=== PATIENT | female | born 1970 | race Caucasian/White ===

== ENCOUNTER 2020-04-29 17:21 | Emergency (ER) | payer MEDICAID ==
[2020-04-29] MEDS ORDERED: ONDANSETRON HCL INJ/PF 4 MG/2 ML SDV IV ONE (18:45)
--- NOTE | 2020-04-29 18:45 | ER Document Report ---
ED Medical Screen (RME) - General Stated Complaint: CHEST PAIN, VOMITING Time Seen by Provider: 04/29/20 18:32 Notes: Patient is a 49-year-old female, from [facility] who presents the emergency department with a chief complaint of chest pain, nausea, and vomiting. Patient's chest pain started yesterday. She was given p.o. Zofran and Phenergan. States that she feels a little bit better, but states that she feels like she could vomit again. Patient states that "I feel that I have a virus." Patient also started vomiting today. Patient states that she was started on a new medication and has been vomiting since she took that medication. Exam: Emesis noted in emesis basin. I have greeted and performed a rapid initial assessment of this patient. A comprehensive ED assessment and evaluation of the patient, analysis of test results and completion of medical decision making process will be conducted by an additional ED providers. Physical Exam - Vital signs Vitals: Temp Pulse Resp BP Pulse Ox 98.5 F 74 16 142/70 H 100 04/29/20 17:41 04/29/20 17:41 04/29/20 17:41 04/29/20 17:41 04/29/20 17:41 Course - Vital Signs Vital signs: Temp Pulse Resp BP Pulse Ox 98.5 F 74 16 142/70 H 100 04/29/20 17:41 04/29/20 17:41 04/29/20 17:41 04/29/20 17:41 04/29/20 17:41
--- NOTE | 2020-04-29 20:52 | RADIOLOGY REPORT (SQ) ---
EXAM DESCRIPTION: [facility]: XR CHEST 1 VIEW CLINICAL HISTORY: 49 years Female; cough; COMPARISON: None. FINDINGS: Lungs: Lungs are clear, with no focal infiltrate, pneumothorax, or pleural effusion. Mediastinum: Mediastinum is within normal limits for this positioning. Bones: Bony structures are unremarkable. IMPRESSION: 1. No acute pulmonary findings.
--- NOTE | 2020-04-29 20:55 | RADIOLOGY REPORT (SQ) ---
EXAM DESCRIPTION: X-ray, two views of the right tibia and fibula CLINICAL HISTORY: 49 years Female, PAIN AND SWELLING COMPARISON: None. FINDINGS: Subacute fracture of the distal tibia and fibula diaphysis is identified. There is extensive associated callus formation. One half shaft's width displacement laterally of the tibia is seen. There is apex anterior angulation. Marked associated soft tissue swelling is noted. There is a healed fracture of the proximal fibula. Ankle mortise is intact. The knee appears normal. There is persistent visualization of the fracture line of the tibia and fibula suggesting nonunion. In addition the fragmentation, sclerosis and lucency raises the possibility of associated chronic infection. 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 Chronic osteomyelitis cannot be excluded. Marked soft tissue swelling.
[2020-04-29 21:42] LABS: A TYPE INFLUENZA AG POSITIVE (NEGATIVE); B INFLUENZA AG NEGATIVE (NEGATIVE)
--- NOTE | 2020-04-29 21:53 | EKG REPORT ---
SEVERITY:- NORMAL ECG - SINUS RHYTHM : Confirmed by: Aye Cortez 29-Apr-2020 21:52:19
--- NOTE | 2020-04-29 21:53 | EKG REPORT ---
SEVERITY:- ABNORMAL ECG - SINUS RHYTHM LEFT VENTRICULAR HYPERTROPHY BORDERLINE T ABNORMALITIES, INFERIOR LEADS : Confirmed by: Aye Cortez 29-Apr-2020 21:52:54
--- NOTE | 2020-04-29 21:53 | EKG REPORT ---
SEVERITY:- NORMAL ECG - SINUS RHYTHM : Confirmed by: Aye Cortez 29-Apr-2020 21:52:59
[2020-04-29 21:57] LABS: APPEARANCE,URINE SLIGHTLY-CLOUDY; BILIRUBIN,URINE NEGATIVE (NEGATIVE); COLOR,URINE YELLOW; GLUCOSE, URINE NEGATIVE (NEGATIVE); KETONES,URINE NEGATIVE (NEGATIVE); LEUKOCYTE ESTERASE,URINE SMALL (NEGATIVE); NITRITE,URINE NEGATIVE (NEGATIVE); PROTEIN,URINE 100 mg/dL (NEGATIVE); URINE SPECIFIC GRAVITY 1.012; UROBILINOGEN,URINE NEGATIVE mg/dL (<2.0)
[2020-04-29] MEDS ORDERED: ACETAMINOPHEN 325 MG TABLET PO ONE (22:57)
--- NOTE | 2020-04-29 23:44 | ER Document Report ---
ED General - General Chief Complaint: Nausea/Vomiting Stated Complaint: CHEST PAIN, VOMITING Time Seen by Provider: 04/29/20 18:32 Primary Care Provider: RYANNE WOOD [Primary Care Provider] - Follow up as needed JERRY HEALY MD [NO LOCAL MD] - Follow up in 3-5 days - [facility] Notes: Patient is a 49-year-old female who presents with multiple complaints. She is currently staying at [facility]. Patient has been there since Sunday. She states she has had 2 days of nausea and vomiting. She also has nonspecific abdominal discomfort. She states she has tightness in her chest. No constipation or diarrhea. No cough. No fevers. Denies sick contacts. She also mentions that about 2 years ago she broke her tib-fib. She had a hi placed at [facility]. The hi was removed because it got infected at [facility] in July of 2019. Patient was supposed to have an appointment with [facility] last sunday but missed it. She states that the area is painful but this has been chronic. No injuries. That she uses a wheelchair which is chronic since the injury. - Related Data Allergies/Adverse Reactions: erythromycin base [From Erythrocin] Allergy (Verified 04/29/20 21:53) vancomycin Allergy (Verified 04/29/20 21:53) Past Medical History - General Information source: Patient - Social History Smoking Status: Current Some Day Smoker Chew tobacco use (# tins/day): No Frequency of alcohol use: Rare Drug Abuse: None Family History: Reviewed & Not Pertinent Pulmonary Medical History: Reports: Hx Asthma Review of Systems - Review of Systems Notes: CONSTITUTIONAL: No fever, fatigue or weight loss. SKIN: No rash. HENT: No congestion, ear pain, or sore throat. EYES: No recent vision problems or eye pain. ENDOCRINE: No thyroid problems. No polyuria or polydipsia. CARDIOVASCULAR: No chest pain or edema. RESPIRATORY: No cough, shortness of breath, congestion, or wheezing. For chest tightness. GASTROINTESTINAL: Positive for abdominal cramping and vomiting. GENITOURINARY: No dysuria. MUSCULOSKELETAL: Positive for swelling and pain at the right ankle. LYMPHATIC: No swollen glands. NEUROLOGIC: No seizures. No headache, focal weakness or sensory changes. HEMATOLOGIC: No unusual bruising or bleeding. PSYCHIATRIC: No depression or anxiety. Physical Exam - Vital signs Vitals: Temp 98.5 F 04/29/20 17:21 - General General appearance: Appears well Notes: VITAL SIGNS: Within normal limits. GENERAL: No acute distress, non-toxic appearance. HEAD: Normal with no signs of head trauma. EYES: EOMI, conjunctiva normal, no discharge. EARS: Hearing grossly intact. NOSE: Normal. NECK: Normal range of motion, no tenderness, supple, no lymphadenopathy, No adenopathy, no JVD. CHEST: Clear breath sounds bilaterally. No wheezes, rales, or rhonchi. CARDIAC: Regular rate and rhythm. S1 and S2, without murmurs, gallops, or rubs. VASCULAR: No Edema. Peripheral pulses normal and equal in all extremities. ABDOMEN: Normal and soft with no tenderness. GASTROINTESTINAL: Bowel sounds normal GENITOURINARY: Normal, No tenderness LYMPATHTIC: No lymphadenopathy noted. MUSCULOSKELETAL: Chronic deformity to right lower tib-fib. Swelling present. Strong dorsalis pedis pulse. No erythema. NEUROLOGICAL: Alert and oriented x 3. No focal sensory or strength deficits. Speech normal. Follows commands appropriately. PSYCHIATRIC: Normal Affect, judgement and mood. SKIN: Normal appearance with no rashes or lesions. Course - Re-evaluation Re-evalutation: 04/30/20 01:54 Patient has influenza A which would explain her abdominal cramping and vomiting. States that symptoms started yesterday. She is in the Tamiflu window. Did discuss with orthopedics at [facility] who did her procedure earlier this year. It shows possible chronic osteomyelitis. Orthopedics stated that she needs to follow-up in the office for this within 1 or 2 weeks. He states that nothing urgent needs to be done for this and she does not need to be on antibiotics. I did relay this to the patient and the person with her from [facility]. Has a slightly low magnesium. This is likely from vomiting. We will replete. She will be discharged home with Tamiflu. Patient was tested for Covid. I did inform staff at [facility] about this. She will be isolated until she is called with a negative result. 05/01/20 02:19 - Vital Signs Vital signs: Temp Pulse Resp BP Pulse Ox 98.3 F 74 14 115/77 100 04/30/20 03:32 04/29/20 17:41 04/30/20 03:32 04/30/20 03:32 04/30/20 03:32 - Laboratory Result Diagrams: 04/30/20 00:52 04/30/20 00:52 Laboratory results interpreted by me: 04/29/20 04/30/20 21:15 00:52 Glucose 111 H Magnesium 1.4 L Urine Protein 100 H Ur Leukocyte Esterase SMALL H - Diagnostic Test Radiology reviewed: Image reviewed, Reports reviewed - EKG Interpretation by Me EKG shows normal: Sinus rhythm When compared to previous EKG there are: Previous EKG unavailable Additional EKG results interpreted by me: 04/29/20 23:58 Sinus rhythm at a rate of 69. QTc 429. No acute ST changes. No previous EKG available for comparison. Discharge - Discharge Clinical Impression: Influenza A, Pain of right lower leg, Hypomagnesemia Nausea & vomiting Qualifiers: Vomiting type: unspecified Vomiting Intractability: non-intractable Qualified Code(s): R11.2 - Nausea with vomiting, unspecified Abdominal pain Qualifiers: Abdominal location: generalized Qualified Code(s): R10.84 - Generalized abdominal pain Disposition: PSYCH HOSP/UNIT Instructions: COVID-19 Guidance for Persons Under Investigation, Influenza ([facility]) [id number] Additional Instructions: Make an appointment with your orthopedic doctor within 1 week. Isolate until you are called with a negative Covid result. Please return to the ER for any abdominal pain, fevers, vomiting, worsening symptoms. Prescriptions: Oseltamivir Phosphate [Tamiflu 75 mg Capsule] 75 mg PO BID 5 Days #10 capsule Referrals: [place],NO [Primary Care Provider] - Follow up as needed JERRY HEALY MD [NO LOCAL MD] - Follow up in 3-5 days
[2020-04-30 01:03] LABS: ABSOLUTE BASOPHILS # (AUTO) 0.1 10^3/uL (0.0-0.2); ABSOLUTE EOSINOPHILS # (AUTO) 0.1 10^3/uL (0.0-0.6); ABSOLUTE MONOCYTES (AUTO) 0.5 10^3/uL (0.1-1.4); ABSOLUTE NEUT (AUTO) 3.1 10^3/uL (1.7-8.2); BASOPHILS % (AUTO) 0.9 % (0-2); EOSINOPHILS % (AUTO) 0.8 % (0-6); HEMATOCRIT 36.6 % (36.0-47.0); HEMOGLOBIN 12.6 g/dL (12.0-15.5); MEAN CORPUSCULAR HEMOGLOBIN 28.5 pg (27.0-33.4); MEAN CORPUSCULAR HGB CONC 34.4 g/dL (32.0-36.0); MEAN CORPUSCULAR VOLUME 83 fl (80-97); MONOCYTES % (AUTO) 7.4 % (3-13); PLATELET COUNT 323 10^3/uL (150-450); RED BLOOD COUNT 4.41 10^6/uL (3.72-5.28); RED CELL DISTRIBUTION WIDTH 13.4 % (11.5-14.0); SEGMENTED NEUTROPHILS % (AUTO) 45.9 % (42-78); TOTAL CELLS COUNTED % (AUTO) 100 %; WHITE BLOOD COUNT 6.7 10^3/uL (4.0-10.5)
[2020-04-30 01:15] LABS: ALKALINE PHOSPHATASE 90 U/L (38-126); ANION GAP 9 (5-19); ASPARTATE AMINO TRANSFERASE 24 U/L (14-36); BILIRUBIN,DIRECT 0.2 mg/dL (0.0-0.4); BILIRUBIN,TOTAL 0.5 mg/dL (0.2-1.3); BLOOD UREA NITROGEN 13 mg/dL (7-20); CALCIUM 9.7 mg/dL (8.4-10.2); CARBON DIOXIDE 26 mmol/L (22-30); CHLORIDE 102 mmol/L (98-107); GLUCOSE 111 mg/dL (75-110); TOTAL PROTEIN 7.2 g/dL (6.3-8.2)
[2020-04-30] MEDS ORDERED: ONDANSETRON HCL INJ/PF 4 MG/2 ML SDV IV ONE (01:31)
[2020-04-30] MEDS ORDERED: KETOROLAC TROMETHAMINE INJ/PF 30 MG/1 ML SDV IV ONE (01:31)
[2020-04-30] MEDS ORDERED: MAGNESIUM SULFATE/D5W 1 GM/100 ML RTUPB IV ONE (01:32)
[2020-04-30 03:40] VITALS: BP 115/77
== END 2020-04-30 03:40 ==
LOC: ER 17:21
DX: J10.1 Influenza due to other identified influenza virus with other respiratory manifestations (principal); E83.42 Hypomagnesemia; M79.604 Pain in right leg; R11.2 Nausea with vomiting, unspecified; R10.84 Generalized abdominal pain; R07.9 Chest pain, unspecified; F17.200 Nicotine dependence, unspecified, uncomplicated; Z88.3 Allergy status to other anti-infective agents; Z20.828 Contact with and (suspected) exposure to other viral communicable diseases
CPT/HCPCS: 93005; 99285; 96375; 96365; 36415; 83735; 85025; 87635; 81025; 80053; 81001; 84484; 87804; 71045; 73590; 93010; J3490; J1885; J3475; J2405; C9803